=== PATIENT | female | born 1940 | race Caucasian/White ===

== ENCOUNTER 2018-10-14 08:36 | Inpatient (IN) | payer MEDICARE ==
[2018-10-14 09:00] LABS: #Basophils 0.1 thou/uL (0.0-0.2); #Eosinphils 0.2 thou/uL (0.0-0.7); #Lymphocytes 1.6 thou/uL (1.20-3.40); #Monocytes 0.6 thou/uL (0.11-0.59); #Neutrophils 5.1 thou/uL (1.40-6.50); %Basophils 0.8 % (0.0-1.0); %Eosinophils 2.9 % (0.0-10.0); %Lymphocytes 20.7 % (21.0-51.0); %Monocytes 7.8 % (0.0-10.0); %Neutrophils 67.7 % (42.0-75.0); Hemoglobin 14.1 g/dL (12.0-16.0); Mean Corpuscular HGB CONC 33.6 g/dL (32.0-36.0); Mean Corpuscular Hemoglobin 31.8 pg (27.0-31.0); Mean Corpuscular Volume 94.7 fL (78.0-98.0); Platelet Count 304 thou/uL (130-400); RBC Distribution Width 11.2 % (11.5-14.5); Red Blood Cell (RBC) Count 4.42 mill/uL (4.20-5.40); White Blood Cell (WBC) Count 7.5 thou/uL (4.8-10.8)
[2018-10-14 09:38] LABS: ALT (SGPT) 12 U/L (8-55); AST (SGOT) 14 U/L (5-34); Albumin 4.4 g/dL (3.4-4.8); Alkaline Phosphatase 81 U/L (40-150); Anion Gap 13 mmol/L (10-20); BUN (Urea Nitrogen) 12 mg/dL (9.8-20.1); Bilirubin, Total 0.4 mg/dL (0.2-1.2); Calc. Creatinine Clearance 0 mL/min (70-130); Calcium 9.6 mg/dL (7.8-10.44); Carbon Dioxide 27 mmol/L (23-31); Chloride 104 mmol/L (98-107); Estimated GFR-MDRD 66; Globulin 3.2 g/dL (2.4-3.5); Glucose 88 mg/dL (83-110); Potassium 3.7 mmol/L (3.5-5.1); Protein, Total 7.6 g/dL (6.0-8.3); Sodium 140 mmol/L (136-145)
--- NOTE | 2018-10-14 09:44 | RAD ---
XR Chest 1 View Portable HISTORY: Stroke symptoms left-sided numbness. COMPARISON: None. FINDINGS: Heart size is enlarged. There are atherosclerotic changes of aorta. The lungs are clear of infiltrates. There are no signs of failure IMPRESSION: Cardiomegaly.
[2018-10-14] MEDS ORDERED: hydrALAZINE 20 MG/ML VIAL ONE (10:10)
[2018-10-14 10:42] LABS: Bilirubin Negative (Negative); Blood, Urine Negative (Negative); Clarity CLOUDY (Clear); Glucose, Urine (Dipstick) Negative (Negative); Leukocyte Small (Negative); Nitrite Positive (Negative); Protein, Urine (Dipstick) Negative (Neg-Trace); Urobilinogen 0.2 mg/dL (0.2-1.0)
--- NOTE | 2018-10-14 10:43 | CT ---
Exam: Head CT without contrast HISTORY: Altered mental status. Aphasia. Left-sided numbness COMPARISON: none FINDINGS: Hemorrhage: 1.8 x 0.8 cm oval hyperdensity in the left temporal lobe with adjacent edema. Intraparenc hymal hemorrhage is noted. Mild sulcal effacement. No additional intraparenchymal hemorrhage or extra-axial hematoma. Brain parenchyma: Cortical cazares-white matter differentiation is preserved. No mass effect or midline shift. Basilar cisterns are patent.Extensive white matter hypodensities due to chronic small vessel ischemic change. Ventricular system: Ventricles and sulci are patent and symmetric. Calvarium: Intact. Sinuses and mastoid air cells: Adequate aeration. IMPRESSION: Intraparenchymal hemorrhage in left temporal lobe. Results of study discussed with Dr. Chacon 10/14/2018 at 10:38 AM Code CR
[2018-10-14 10:46] LABS: Bacteria/HPF 4+ HPF (None Seen); Hyaline Casts/LPF 0-3 HYALINE CAST LPF (0-3 Hyaline); Pathc Cast-AUWi Flag 0.13 (0-2.49); RBC/HPF 0-3 HPF (0-3); Squamous Epithelial 0-3 HPF (0-3)
[2018-10-14] MEDS ORDERED: niCARdipine 20MG In NaCl 20 MG/200 ML BAG ONE (10:58)
[2018-10-14 12:06] LABS: INR-International Normal Ratio 0.9; PTT 37.8 SEC (22.9-36.1); Prothrombin Time 12.4 SEC (12.0-14.7)
[2018-10-14] MEDS ORDERED: Docusate 100 MG CAP PO PRN (12:22)
[2018-10-14] MEDS ORDERED: Milk Of Magnesia 30 ML UDCUP PO PRN (12:22)
[2018-10-14] MEDS ORDERED: Mag-Al 1200 mg/1200 mg/30 ML UDCUP PO PRN (12:22)
[2018-10-14] MEDS ORDERED: Bisacodyl 10 MG SUPP PR PRN (12:22)
[2018-10-14] MEDS ORDERED: Ondansetron PF 4 MG/2 ML Vial IVP PRN (12:22)
[2018-10-14] MEDS ORDERED: traMADol HCl 50 MG TAB PO PRN ×2 (12:30)
[2018-10-14] MEDS ORDERED: Nitrofurantoin Monohyd/M-Cryst 100 MG CAP PO SCH (12:45)
[2018-10-14 13:40] VITALS: BMI 27.8
[2018-10-14] MEDS: Sodium Chloride 0.9% 1,000 ML IV SCH (13:57)
--- NOTE | 2018-10-14 14:02 | CON ---
DATE OF CONSULTATION: HISTORY OF PRESENT ILLNESS: Aileen is a 78-year-old female, who was transferred from [place] with an acute hemorrhagic stroke on the left side. She has been at the hospital here before. In fact, she was here in November of 2017, where she apparently had diagnosis of palpitation, left middle cerebral artery infarct, anxiety, depression, reflux, and hypertension was made. She now presents this morning with aphasia, unresponsive to her usual care. She was transferred to the ICU from [place]. PAST MEDICAL HISTORY: Hypertension, anxiety, hyperlipidemia, CVA. PAST SURGICAL HISTORY: Hysterectomy and appendectomy. MEDICATIONS: Medicines from home include; 1. Omeprazole. 2. Valium 5 mg. 3. Hydrochlorothiazide 12.5. 4. Lopressor 50 twice a day. 5. Plavix 75. 6. Eliquis 5 twice a day. 7. Lotensin 20. ALLERGIES: NUMEROUS; ZITHROMAX, CAFFEINE, CIPRO, ROCEPHIN, PENICILLIN, SULFA. SOCIAL HISTORY: Former smoker. No alcohol. REVIEW OF SYSTEMS: Ten-point negative. PHYSICAL EXAMINATION: GENERAL: In the ICU, she is awake, alert, responsive, in no distress at this time. VITAL SIGNS: Stable, in fact she moves all 4 extremities. CHEST: No wheezing or crackles. CARDIAC: Normal S1 and S2. No gallops. ABDOMEN: No mass. LABORATORY DATA: White count 7000. Lytes are normal. DIAGNOSTIC DATA: Chest x-ray is clear. CT brain shows left temporal hemorrhage. IMPRESSION: 1. Left temporal hemorrhage. 2. On anticoagulation, Eliquis and Plavix, history of palpitation. 3. Urinary tract infection. PLAN: Pulmonary cardenas, nothing additional to offer. Await input from Neurosurgery. We will follow while in the ICU. Hold off anticoagulation, Plavix, and Eliquis. Consultation note, 70 minutes, 50% direct patient care. Job ID: [id number]
[2018-10-14] MEDS: Acetaminophen 325 MG TAB PO PRN (14:32)
--- NOTE | 2018-10-14 16:46 | CT ---
Exam: Head CT without contrast HISTORY: Intracerebral hemorrhagic stroke. Follow-up exam. COMPARISON: 10/14/2018 at 10:29 AM FINDINGS: Hemorrhage: Stable hyperdensity centered in the left temporal lobe measuring 1.8 x 1.0 cm. Stable adj acent edema and sulcal effacement of the left temporal lobe. Brain parenchyma: Cortical cazares-white matter differentiation is preserved. No mass effect or midline shift. Basilar cisterns are patent.Stable white matter hypodensities due to chronic small vessel ischemic change There is no midline shift. Basilar cisterns are patent Ventricular system: Ventricles and sulci are patent and symmetric. Calvarium: Intact. Sinuses and mastoid air cells: Adequate aeration. IMPRESSION: Essentially stable left temporal lobe intraparenchymal hemorrhage.
[2018-10-14] MEDS: Labetalol HCl 100 MG/20 ML VIAL SLOW IVP PRN (17:41)
[2018-10-14] MEDS: Metoprolol Tartrate 25 MG TAB PO SCH (20:38)
--- NOTE | 2018-10-14 21:02 | HP ---
PRIMARY CARE PHYSICIAN: Fabian Guerrero MD. CHIEF COMPLAINT: Having trouble finding words. HISTORY OF PRESENT ILLNESS: Ms. Ta is a very pleasant 78-year-old female who has a history of hypertension as well as transient ischemic attack. She was in her usual state of health until night when she said she was having a little bit of a headache off and on and noticed that it was hard to say certain words. Her daughter noticed it too who was at the bedside and says that she also was getting confused on certain things as well. She also noted a bit of dizziness as well and this continued until today and for this reason, she came to the emergency room for evaluation. In the ER, they did a CT scan of the head in which it was noted that she had an intracranial hemorrhage and is being admitted for further treatment and evaluation. The patient denies having any chest pain or shortness of breath. No nausea, no vomiting. She says she has some right-hand weakness, which has been that way for over a year after she suffered a transient ischemic attack, but has not noticed any further weakness than at baseline. She also denies any PND, no orthopnea. She does have palpitations however and says that this has been a problem off and on. She is worn a what sounds like an event monitor from her utility [employer]cre[employer], but they were never able to find anything. She also complains of some dysuria and frequency off and on and does notice some urinary incontinence off and on. REVIEW OF SYSTEMS: CONSTITUTIONAL: There has been no fevers, chills, no night sweats, no weight loss. HEENT: No headaches. No dizziness. No visual changes. No sore throat. No rhinorrhea. No neck pain. No adenopathy. PULMONARY: No hemoptysis. No cough. No wheezing. CARDIOVASCULAR: As the History of Present Illness. GASTROINTESTINAL: No abdominal pain. No nausea. No vomiting. No change in bowels. GENITOURINARY: No urinary frequency, hematuria, no hesitancy. NEUROLOGIC: As the History of Present Illness. SKIN AND INTEGUMENT: No skin changes. No rash. ENDOCRINE: No heat or cold intolerance. PAST MEDICAL HISTORY: Significant for hypertension and transient ischemic attack. PAST SURGICAL HISTORY: She has had a hysterectomy for cervical cancer. Has a history of appendectomy and tonsillectomy. ALLERGIES: TO PENICILLIN AND SULFA. SOCIAL HISTORY: She is . She denies any smoking or alcohol use. She lives with her daughter and her son, Sachin Wallace, is her medical power of attorney at law and she would like to be a do not resuscitate. FAMILY HISTORY: Significant for diabetes mellitus in her mother. CURRENT MEDICATIONS: Include; 1. Atorvastatin 20 mg at bedtime. 2. Benazepril 20 mg twice daily. 3. Plavix 75 mg daily. 4. Diazepam 2.5 mg as needed. 5. Metoprolol 50 mg twice daily. 6. Tramadol 50 mg twice a day as needed. PHYSICAL EXAMINATION: GENERAL: She is alert and oriented. She appears to be in no acute distress. VITAL SIGNS: Initially her blood pressure was around 205/83, heart rate is 80, respiratory rate of 16, and she is afebrile. HEENT: Her pupils are equal, round, and reactive to light and accommodation. Extraocular muscles are intact. Her sclerae are anicteric. Throat, there is no erythema and no exudates. NECK: No adenopathy. No bruits. LUNGS: These are clear to auscultation. There is no wheezing, no rales, no rhonchi. CARDIOVASCULAR: She has a normal S1 and S2. I did not appreciate an S3 or S4. No murmurs, clicks, or rubs. ABDOMEN: Obese. It is soft. It is nontender, nondistended. Positive for bowel sounds. There is no rebound, no guarding, no organomegaly. EXTREMITIES: There is no edema. NEUROLOGICAL: Her cranial nerves 2 through 12 are intact. Muscle strength is 5/5 in both her upper and lower extremities. SKIN AND INTEGUMENT: There is no skin changes. No rash. IMAGING STUDIES: CT scan. She has a fairly ovoid area of hyperintensity in the left temporal lobe and this is by my reading. Also, on her chest x-ray, she has an enlarged heart, it is kind of boot-shaped in appearance and some mild increased pulmonary vascular markings. On her EKG, it was sinus rhythm. There was a T-wave inversion in lead III. The heart rate is in the 50s with no specific ST wave changes. LABORATORY RESULTS: Sodium is 140, potassium 3.7, chloride is 104, CO2 is 27, BUN of 12, creatinine of 0.84, glucose is 88. White blood cell count 7.5, hemoglobin 14.4, hematocrit is 41.8, and platelet count was 304. INR is 0.9. Urinalysis, nitrite positive with 4+ bacteria. ASSESSMENT: This is a pleasant 78-year-old female who is being admitted to the ICU due to an intracranial hemorrhage. It is possible this could be related to an elevated blood pressure as well as being on Plavix. However, underlying structural abnormality should be ruled out. She will be placed in the ICU. We will continue the nicardipine drip for blood pressure control. Neurosurgery has already been consulted to help in her management and again get an MRI to help evaluate the structure of the brain. This can likely be done tomorrow. 1. Hypertension. Currently, she is on a nicardipine drip. We can titrate this as tolerated and initiate her home medications in a stepwise fashion likely over the course of the next several days. 2. Cardiomegaly. This needs to be assessed with an echocardiogram to see what her ejection fraction is and if necessary, she may need Cardiology consultation. 3. Deep venous thrombosis prophylaxis will be with SCDs only given the intracranial hemorrhage and we would be placing her on gastrointestinal prophylaxis. Job ID: [id number]
[2018-10-14] MEDS ORDERED: Morphine 2 MG/ML SYRINGE SLOW IVP PRN (21:37)
[2018-10-15] MEDS: Acetaminophen 325 MG TAB PO PRN ×3 (02:08→21:38)
[2018-10-15] MEDS: Sodium Chloride 0.9% 1,000 ML IV SCH (02:09)
[2018-10-15 05:20] LABS: #Eosinphils 0.2 thou/uL (0.0-0.7); #Lymphocytes 1.4 thou/uL (1.20-3.40); #Monocytes 0.8 thou/uL (0.11-0.59); #Neutrophils 7.1 thou/uL (1.40-6.50); %Basophils 0.2 % (0.0-1.0); %Eosinophils 1.8 % (0.0-10.0); %Monocytes 8.5 % (0.0-10.0); %Neutrophils 74.5 % (42.0-75.0); Hemoglobin 13.4 g/dL (12.0-16.0); Mean Corpuscular Hemoglobin 31.2 pg (27.0-31.0); Mean Corpuscular Volume 94.7 fL (78.0-98.0); Mean Platelet Volume 7.2 fL (7.4-10.4); Platelet Count 340 thou/uL (130-400); RBC Distribution Width 11.5 % (11.5-14.5); Red Blood Cell (RBC) Count 4.31 mill/uL (4.20-5.40); White Blood Cell (WBC) Count 9.5 thou/uL (4.8-10.8)
[2018-10-15 05:40] LABS: Anion Gap 14 mmol/L (10-20); BUN (Urea Nitrogen) 8 mg/dL (9.8-20.1); Calc. Creatinine Clearance 90 mL/min (70-130); Calcium 9.1 mg/dL (7.8-10.44); Carbon Dioxide 22 mmol/L (23-31); Chloride 104 mmol/L (98-107); Estimated GFR-MDRD Greater than 90; Glucose 100 mg/dL (83-110); Potassium 3.2 mmol/L (3.5-5.1); Sodium 137 mmol/L (136-145)
[2018-10-15] MEDS: Metoprolol Tartrate 25 MG TAB PO SCH ×2 (08:17→21:37)
--- NOTE | 2018-10-15 09:41 | PRG ---
DATE OF SERVICE: 10/15/2018 SUBJECTIVE: This morning in the ICU, awake, alert, and responsive. Slight headache. OBJECTIVE: VITAL SIGNS: Blood pressure 152/58, saturations 98% on room air, respiratory rate , pulse 80. CHEST: Decreased breath sounds. No wheezing. CARDIAC: Normal S1 and S2. No gallops. ABDOMEN: No masses. LABORATORY DATA: Unremarkable. Urine shows 7 to 12 wbc's. Culture is pending 4+ bacteria. IMPRESSION: 1. Urinary tract infection. Multiple allergies, sensitive to Macrodantin. 2. Left temporal hemorrhage. PLAN: Pulmonary cardenas, she is stable enough to be transferred out of the ICU. Pulmonary will follow at a distance when she leaves the ICU. Continue antibiotics for UTI. Job ID: [id number]
--- NOTE | 2018-10-15 10:08 | PRG ---
DATE OF SERVICE: I personally interviewed and examined the patient, reviewed records and imaging, and agreed with documentation of Greta Newsome PA-C, dated 10/14/2018. Briefly, Yahir Ta is a 78-year-old woman, brought to our emergency department for new-onset headache and neurological complaints, and a CT examination of the brain revealed a small intraparenchymal hemorrhage in a left temporal lobe. Followup imaging showed stability of the clot. I saw Ms. Ta in her ICU room this morning. She is wide awake. She had an echocardiogram being completed and she is perfectly interactive during that evaluation. When I got to speak with her, I found her to be without complaints. OBJECTIVE: VITAL SIGNS: Her vital signs have been relatively stable overnight with blood pressures in the 120s to 130s. Her recent blood pressure of 150 is the outlier. I do not see any fevers recorded. NEUROLOGICAL: Ms. Ta is awake, alert, and oriented. Her cranial nerves are working well. There is no lateralized motor or sensory deficit that I can appreciate. There may be hand to right-sided pronator drift, but she relates that to a small stroke she had in November 2017. She certainly has not deteriorated since yesterday. Followup CT scan showed stability of the clot. I do not believe Ms. Ta warrants neurosurgical intervention. Followup scan will be made in 2 weeks to ensure that the clot has resolved. I would like her to be off Plavix until then. We can think about restarting it thereafter. I also think about an MRI scan just to ensure there is no underlying lesion once the blood is completely gone. Job ID: [id number]
[2018-10-15] MEDS: Nitrofurantoin Monohyd/M-Cryst 100 MG CAP PO SCH ×2 (10:23→21:37)
[2018-10-15] MEDS ORDERED: Potassium Chloride 20 MEQ TAB PO SCH (10:30)
--- NOTE | 2018-10-15 10:52 | HP ---
HISTORY OF PRESENT ILLNESS: Ms. Ta is a 78-year-old female, who came to the emergency department this morning for a day and half of headaches, dizziness, and difficulty finding words. The patient is resting in her hospital bed with one of her sons in the room. She says that she was hoping that the symptoms would just go away and that is why she waited so long to come to the emergency department. She states that she has a small area of tingling on her left cheek and left palm of her hands, but when touched her left side feels the same as the right. The patient states that approximately 10 months ago, she had an ischemic stroke and had difficulty moving the right arm. This was not the pain symptoms and was not as concerned. The patient is taking Plavix. Neurosurgery has been consulted Ms. Ta following a CT scan showing a left-sided temporal intraparenchymal hemorrhage. The patient is alert and oriented x3. Normal attention and concentration. Speech is spontaneous and fluent, however, occasionally she does find it difficulty to get a word out here or there. She is moving all 4 extremities well. She has no lateralizing deficits. rapid hand movements are Cranial nerves 2 through 12 are intact. She has good strength bilaterally. REVIEW OF SYSTEMS: A 10-point review of systems has been completed and is negative other than stated in the above HPI. PAST MEDICAL HISTORY: Hyperlipidemia, hypertension, history of TIA. PAST SURGICAL HISTORY: Hysterectomy. PAST PSYCHIATRIC HISTORY: Includes anxiety. SOCIAL HISTORY: The patient denies alcohol use. Denies drug use. Denies smoking. She [place] Her approximately 2 years ago. Her son lives next door. MEDICATIONS: 1. Flexeril. 2. Hydrochlorothiazide. 3. Lipitor. 4. Metoprolol. 5. Omeprazole. 6. Tramadol. 7. Valium. 8. Plavix. ALLERGIES: ADVIL, ASPIRIN, BARBITURATES, CIPRO, CODEINE, COMPAZINE, DARVON, ELAVIL, EQUANIL, NORFLEX, NORGESIC, PENICILLIN, ROCEPHIN, SULFA, ZITHROMAX. PHYSICAL EXAMINATION: VITAL SIGNS: Blood pressure 188/77, heart rate 60, respirations 16, O2 saturations 96% on room air, temp 98.9. CONSTITUTIONAL: The patient is alert and oriented. She is afebrile. She is hypertensive. She appears nontoxic. HEENT: Head is normocephalic and atraumatic. Pupils are equal, round, and reactive to light. Extraocular movements are intact. Hearing is intact. Moist mucous membranes. RESPIRATIONS: Normal work of breathing on room air. Symmetric chest rise. EXTREMITIES: She is moving all 4 extremities well. She has 5/5 strength in bilateral deltoids, biceps, triceps, operations inspector strength, hip flexion on the left, decreased strength 4/5 on the right due to hip pain. 5/5 strength in knee flexion, knee extension, dorsiflexion, plantar flexion bilaterally. There are no changes in sensation in the lower extremities. The patient states there is tingling in the left palm. NEUROLOGIC: The patient is alert and oriented x3. Cranial nerves 2 through 12 are tested and intact. speech is spontaneous and fluent with occasional halting due to her searching for a word. Memory and attention are normal. There is no pronator drift. [id number] is smooth and symmetric. Rapid hand movements are smooth and symmetric. There are no lateralizing deficits. No sensory or motor changes. IMAGING: CT brain shows a 1.8 x 0.8 cm oval hyperdensity in the left temporal lobe, intraparenchymal hemorrhage, cortical white cazares matter differentiation is preserved. There is no mass effect or midline shift. There is extensive white matter hypodensity due to chronic small-vessel ischemic change. The ventricles and sulci are patent and symmetric. ASSESSMENT AND PLAN: Ms. Ta is a 78-year-old female, who sustained intraparenchymal hemorrhage on the left temporal lobe while on Plavix. We will admit her. we will get her blood pressure under control ideally under 140 systolic. We will make sure she gets any platelet within this evening. Neuro checks. We will consult the hospitalist for medical management as well as UTI and help finding proper antibiotic use with her numerous allergies. Job ID: [id number]
--- NOTE | 2018-10-15 11:07 | PDOC.PN ---
- Subjective Encounter Start Date: 10/15/18 Encounter Start Time: 11:06 Ms. Ta was seen today in follow-up of ICH while on Plavix. she does not have any complaints. Her headache has improved. she denies any chest pain or difficulty breathing. - Objective Resuscitation Status - Order Detail: 10/14/18 15:47 Resuscitation Status Routine Resuscitation Status: DNAR: NO Resuscitation Discussed with: Discussed with the patient MAR Reviewed: Yes Vital Signs & Weight: Vital Signs (12 hours) Temp Pulse Ox 10/15/18 07:28 98 10/15/18 07:00 97.8 F 10/15/18 03:00 98.3 F 10/15/18 00:00 98.3 F Weight Admit Weight 157 lb 3.033 oz Weight 157 lb 10.088 oz Most Recent Monitor Data Heart Rate from ECG 60 NIBP 136/61 NIBP BP-Mean 77 Respiration from ECG 15 SpO2 96 I&O: 10/14/18 10/15/18 10/16/18 06:59 06:59 06:59 Intake Total 2669 584 Output Total 3000 900 Balance -331 -316 Result Diagrams: 10/15/18 04:28 10/15/18 04:28 Phys Exam - Physical Examination HEENT: PERRLA Respiratory: no wheezing, no rales, no rhonchi, clear to auscultation bilateral Cardiovascular: RRR, no significant murmur, no rub Gastrointestinal: soft, non-tender, no distention, positive bowel sounds Musculoskeletal: no edema Neurological: non-focal, moves all 4 limbs Psychiatric: normal affect, A&O x 3 Dx/Plan (1) ICH (intracerebral hemorrhage) Code(s): I61.9 - NONTRAUMATIC INTRACEREBRAL HEMORRHAGE, UNSPECIFIED Status: Acute Qualifiers: Intracerebral hemorrhage etiology: nontraumatic (2) Hypertension Code(s): I10 - ESSENTIAL (PRIMARY) HYPERTENSION Status: Acute (3) Cerebral vascular disease Code(s): I67.9 - CEREBROVASCULAR DISEASE, UNSPECIFIED Status: Acute - Plan * Non-traumatic ICH - This has been stable overnight. She has been assessed by Neurosurgery. She will not require surgery * HTN- blood pressure is stable off the Cardene drip. She has been started back on Labetalol, and will re-start Benazepril * UTI- continue Macrobid, and await culture results * She can be moved out of the ICU
[2018-10-15] MEDS: hydrALAZINE 10 MG TAB PO PRN (18:37)
[2018-10-15] MEDS: Labetalol HCl 100 MG/20 ML VIAL SLOW IVP PRN (22:39)
[2018-10-16] MEDS ORDERED: hydrALAZINE 20 MG/ML VIAL SLOW IVP SCH
[2018-10-16] MEDS ORDERED: ALPRAZolam 0.25 MG TAB PO SCH (01:15)
[2018-10-16] MEDS ORDERED: Diazepam 2 MG TAB PO PRN (01:33)
[2018-10-16] MEDS: hydrALAZINE 10 MG TAB PO PRN ×2 (03:14→13:05)
[2018-10-16 05:25] LABS: Anion Gap 14 mmol/L (10-20); BUN (Urea Nitrogen) 9 mg/dL (9.8-20.1); Calc. Creatinine Clearance 79 mL/min (70-130); Calcium 9.8 mg/dL (7.8-10.44); Carbon Dioxide 23 mmol/L (23-31); Chloride 105 mmol/L (98-107); Estimated GFR-MDRD 84; Glucose 109 mg/dL (83-110); Potassium 3.6 mmol/L (3.5-5.1); Sodium 138 mmol/L (136-145)
[2018-10-16] MEDS: Nitrofurantoin Monohyd/M-Cryst 100 MG CAP PO SCH (09:38)
[2018-10-16] MEDS: Metoprolol Tartrate 25 MG TAB PO SCH ×2 (09:38→21:04)
[2018-10-16] MEDS: Amlodipine 5 MG TAB PO SCH (09:39)
[2018-10-16] MEDS: Acetaminophen 325 MG TAB PO PRN ×2 (09:41→21:07)
[2018-10-16] MEDS: cefTRIAXone\\ROCEPHIN 1 GM in Sodium Chloride 0.9% 100 ML IVPB SCH (12:26)
--- NOTE | 2018-10-16 16:30 | PDOC.PN ---
- Subjective Encounter Start Date: 10/16/18 Encounter Start Time: 16:29 Ms. Ta was seen today in follow-up of ICH. She says she is feeling better. the headache she experienced has improved. She had some flushed feelings last night but attributes this to Hydralazine. - Objective Resuscitation Status - Order Detail: 10/14/18 15:47 Resuscitation Status Routine Resuscitation Status: DNAR: NO Resuscitation Discussed with: Discussed with the patient MAR Reviewed: Yes Vital Signs & Weight: Vital Signs (12 hours) Temp Pulse Resp BP BP BP Pulse Ox 10/16/18 16:00 98 F 63 20 95 10/16/18 15:19 136/58 L 10/16/18 13:40 152/80 H 10/16/18 13:05 65 162/78 H 10/16/18 12:45 162/78 H 10/16/18 11:10 98.3 F 63 20 158/76 H 97 10/16/18 09:39 70 138/66 10/16/18 09:38 138/66 10/16/18 09:18 95 10/16/18 07:29 98.1 F 70 20 159/77 H 95 Weight Admit Weight 157 lb 3.033 oz Weight 157 lb 10.088 oz Most Recent Monitor Data Heart Rate from ECG 68 NIBP 145/63 NIBP BP-Mean 93 Respiration from ECG 17 SpO2 99 I&O: 10/15/18 10/16/18 10/17/18 06:59 06:59 06:59 Intake Total 2669 984 Output Total 3000 1550 Balance -331 -566 Result Diagrams: 10/15/18 04:28 10/16/18 04:50 Phys Exam - Physical Examination HEENT: PERRLA Respiratory: no wheezing, no rales, no rhonchi, clear to auscultation bilateral Cardiovascular: RRR, no significant murmur, no rub Gastrointestinal: soft, non-tender, no distention, positive bowel sounds Musculoskeletal: no edema, pulses present Neurological: non-focal, normal sensation, moves all 4 limbs Dx/Plan (1) ICH (intracerebral hemorrhage) Code(s): I61.9 - NONTRAUMATIC INTRACEREBRAL HEMORRHAGE, UNSPECIFIED Status: Acute Qualifiers: Intracerebral hemorrhage etiology: nontraumatic (2) Hypertension Code(s): I10 - ESSENTIAL (PRIMARY) HYPERTENSION Status: Acute (3) Cerebral vascular disease Code(s): I67.9 - CEREBROVASCULAR DISEASE, UNSPECIFIED Status: Acute - Plan * ICH- while on Plavix,- She will not require surgery. Continue to hold Plavix * HTN- blood pressure has been labile- will add Amlodipine and monitor her through the night * Prior TIA- again Plavix is on Hold * UTI- urine culture is growing E. Coli which is bradley-sensitive- will give a trail of Rocephin. Her allergies were noted, and the risks of a potential reaction were explained to the patient and she wishes to proceed. * Anticipate home in a few days
[2018-10-17] MEDS: Acetaminophen 325 MG TAB PO PRN (07:13)
[2018-10-17] MEDS: Amlodipine 5 MG TAB PO SCH (08:35)
[2018-10-17] MEDS: Metoprolol Tartrate 25 MG TAB PO SCH (08:36)
[2018-10-17 11:42] VITALS: TEMP 98.5
[2018-10-17 11:56] VITALS: BP 158/84
[2018-10-17] MEDS: cefTRIAXone\\ROCEPHIN 1 GM in Sodium Chloride 0.9% 100 ML IVPB SCH (12:02)
--- NOTE | 2018-10-17 14:09 | DIS ---
DATE OF ADMISSION: 10/14/2018 DATE OF DISCHARGE: 10/17/2018 DISCHARGE DISPOSITION: Home. PRIMARY DISCHARGE DIAGNOSES: 1. Left temporal lobe parenchymal hemorrhage. 2. Initial uncontrolled hypertension, resolved. 3. Urinary tract infection. SECONDARY DISCHARGE DIAGNOSES: 1. History of prior CVA in November of 2017 with right hemiparesis. 2. Dyslipidemia. PROCEDURES DONE DURING HOSPITALIZATION: Echo with 2D Doppler done showed EF of 60%. There is concentric LVH seen. RV systolic pressures of 45. CT brain without contrast on admission done showed intraparenchymal hemorrhage in the left temporal lobe. CT angio chest done showed no evidence of PE. Chest x-ray done showed cardiomegaly. Urine culture grew E coli more than 100,000 colony-forming units per mL sensitive to all antibiotics. Hemoglobin and hematocrit of 13 and 40, platelet count 340. BUN 9, creatinine 0.6, albumin is 4.4. DISCHARGE MEDICATION: 1. Atorvastatin 20 mg p.o. at bedtime. 2. Benazepril 20 mg p.o. twice daily. 3. Valium 2.5 mg p.o. daily p.r.n. 4. Lopressor 50 mg twice daily. 5. Ultram p.r.n. for pain. 6. Norvasc 10 mg p.o. daily. 7. Vantin 200 mg p.o. twice daily for 4 days. ALLERGIES: TO AMITRIPTYLINE, ASPIRIN, ZITHROMAX, BARBITURATES, CAFFEINE, QUINOLONES, CODEINE, ADVIL, PENICILLIN, PENTAZOCINE, COMPAZINE, DARVON, AND SULFA. DISCHARGE PLAN: The patient to follow up with Dr. Cates in 2 to 3 weeks and primary care physician in 1 week. BRIEF COURSE DURING HOSPITALIZATION: The patient initially got admitted on the with complaints of headache, dizziness, and difficulty finding words. On arrival, the patient had a CT brain without contrast done which showed left temporal lobe intraparenchymal hemorrhage. Her Plavix was held and the patient was initially admitted to CCU. She has had a repeat CT scan done, which shows stability in the parenchymal hemorrhage with no further bleeding. She is also ambulating and eating well. The patient's word-finding difficulty has resolved. She is talking fluently. Her medications were optimized for hypertension. Norvasc has been added at 10 mg daily. She has been cleared by Neurosurgery for discharge. She needs to follow up with Dr. Cates in 2 to 3 weeks for possible MRI. She is advised to hold Plavix for another 2 weeks and to restart once cleared by Neurosurgery in the outpatient setting. Please note, I have seen and examined the patient on the day of discharge. Job ID: [id number]
== END 2018-10-17 13:54 | disposition home or self-care (01) | DRG 65 ==
LOC: ERS 08:36 → CCU 12:48 → 2SE 10-15 18:13
PROVIDERS: ADMIT Internal Medicine; ATTEND Internal Medicine
DX: I61.1 Nontraumatic intracerebral hemorrhage in hemisphere, cortical (principal); N39.0 Urinary tract infection, site not specified; Z66 Do not resuscitate; E78.5 Hyperlipidemia, unspecified; I10 Essential (primary) hypertension; F41.9 Anxiety disorder, unspecified; F32.9 Major depressive disorder, single episode, unspecified; K21.9 Gastro-esophageal reflux disease without esophagitis; Z88.8 Allergy status to other drugs, medicaments and biological substances; Z88.5 Allergy status to narcotic agent; Z88.2 Allergy status to sulfonamides; Z88.0 Allergy status to penicillin; Z88.1 Allergy status to other antibiotic agents; Z86.73 Personal history of transient ischemic attack (TIA), and cerebral infarction without residual deficits; Z90.710 Acquired absence of both cervix and uterus; Z79.899 Other long term (current) drug therapy; Z90.49 Acquired absence of other specified parts of digestive tract
CPT/HCPCS: 36415; 36430; 70450; 71045; 80048; 80053; 81003; 81015; 85025; 85610; 85730; 86850; 86900; 86901; 87077; 87086; 87186; 93005; 93306; 96365; 96366; 96375; J0360; J0696; J3490; J7050; P9035